=== PATIENT | female | born 1965 | race Caucasian/White ===

== ENCOUNTER 2017-09-26 13:12 | Emergency (ER) | payer SELFPAY ==
[~2017-09-26] VITALS: Ht 162.6 cm; Wt 66.0 kg
[~2017-09-26 13:12] MED LIST: ALPR2TAB3 PO; BUTA1CAP PO; HYDR25TA5 PO; LIAL1.2T PO; LISI-515 PO; TRAM50TA PO
[2017-09-26 13:14] VITALS: BP 122/87; PULSE 107; RESP 20; TEMP 98.4; O2SAT 98
[2017-09-26] MEDS ORDERED: CLON1 PO (13:28)
[2017-09-26] MEDS ORDERED: PENT500C2 PO (13:28)
[2017-09-26] MEDS ORDERED: ASPI-516 CHEW (13:30)
[2017-09-26] MEDS ORDERED: SIMV10TA PO (13:30)
--- NOTE | 2017-09-26 13:44 | PD ---
HPI Chief Complaint: GI Complaint Time Seen by Provider: 13:27 Travel History International Travel<30 days: No Contact w/Intl Traveler<30days: No Traveled to known affect area: No History of Present Illness HPI The patient was seen and examined in the presence of the nurse. This patient complains of a flare of Crohn's. She lost her insurance and doesn't follow up with GI any longer or take any Crohn's medication. She complains of abdominal cramping as well as nausea and vomiting and diarrhea. Denies rectal bleeding or fever. Symptoms severity is moderate. Had this chronically for months to years. No alleviating factors. Symptoms exacerbated by lack of compliance and follow-up. She has no appendix or gallbladder. PFSH Past Medical History Hx Anticoagulant Therapy: No Arthritis: Yes (OSTEO) Asthma: No Autoimmune Disease: No Anxiety: Yes Depression: Yes Heart Rhythm Problems: No Cancer: No Cardiac Catheterization: No Cardiovascular Problems: Yes High Cholesterol: No Chemotherapy: No Chest Pain: No Congestive Heart Failure: No COPD: Yes Cerebrovascular Accident: No Diabetes: No Diminished Hearing: No Endocrine: No Gastrointestinal Disorders: Yes (CROHNS) GERD: Yes (acid reflex) Genitourinary: Yes (KIDNEY INFECTION) Headaches: Yes Hepatitis: Yes (QUESTIONABLE HEP C, CAME BACK NEGATIVE 06/2016) Hiatal Hernia: Yes Hypertension: Yes Immune Disorder: Yes (CROHN'S DISEASE) Implanted Vascular Access Dvce: No Musculoskeletal: Yes (SPINAL STENOSIS, herniating and buldging disks c4-c6) Neurologic: Yes Psychiatric: Yes Reproductive: No Respiratory: Yes (COPD) Immunizations Current: No Migraines: Yes Myocardial Infarction: No Pneumonia: Yes Seizures: No Ulcer: Yes Tetanus Vaccination: > 5 Years PNEUMOCCOCAL Vaccine (Year): 2 ?: Not Menopausal: Yes : 4 Para: 2 Miscarriage: 1 : 1 Ovarian Cysts: Yes (BILATERAL CYSTS REMOVED 12/12/14) Tubal Ligation: Yes Past Surgical History Abdominal Surgery: Yes (APPY, GLADYS) Appendectomy: Yes Cholecystectomy: Yes Coronary Artery Bypass Graft: No Gynecologic Surgery: Yes (ENDOMETRIAL ABLATION, TUBAL) Hysterectomy: No Oral Surgery: Yes (TONSILRCTOMY) Tonsillectomy: Yes Other Surgery: Yes (BREAST RECONSTRUCTION ,left breast 2 biopsy's, appendectomy , gall bladder, ) Family History Family Myocardial Infarction: Yes (FATHER WITH MS AND CABG) Family Hypercholesterolemia: Yes Social History Alcohol Use: Yes (occas. beer) Tobacco Use: Yes (3-4 cigarettes per day) Substance Use: No Allergies-Medications (Allergen,Severity, Reaction): Coded Allergies: Sulfa (Sulfonamide Antibiotics) (Unverified Allergy, Severe, RASH, ) ciprofloxacin (Unverified Allergy, Severe, HIVES, 09/26/17) diatrizoate meglumine (Unverified Allergy, Severe, PALPITATIONS, 09/26/17) duloxetine (Unverified Allergy, Severe, RASH, 09/26/17) gadobenic acid (Unverified Allergy, Severe, PALPITATIONS, 09/26/17) gadodiamide (Unverified Allergy, Severe, PALPITATIONS, 09/26/17) gadoteridol (Unverified Allergy, Severe, PALPITATIONS, 09/26/17) iodixanol (Unverified Allergy, Severe, PALPITATIONS, 09/26/17) iohexol (Unverified Allergy, Severe, HEART PALPITATIONS, 09/26/17) Reported Meds & Prescriptions Reported Meds & Active Scripts Active Zofran (Ondansetron HCl) 4 Mg Tab 4 Mg PO Q6HR PRN Tylenol-Codeine #3 (Acetaminophen-Codeine) 300-30 mg Tab 1 Tab PO Q6HR PRN Prednisone 20 Mg Tab 40 Mg PO DAILY Take 40 mg (2 tablets) daily for 5 days Reported Aspirin 81 Mg Chew 81 Mg CHEW DAILY Simvastatin 10 Mg Tab 10 Mg PO DAILY Pentasa (Mesalamine) 500 Mg Caper 500 Mg PO QID Klonopin (Clonazepam) 1 Mg Tab 1 Mg PO TID Lisinopril 20 Mg Tab 20 Mg PO DAILY Fioricet (Yonsgkvjps-Txahsrjiiiaml-Tnsnjcnn) 50-300-40 Mg Cap 1 Cap PO Q4H PRN Review of Systems General / Constitutional: No: Fever Eyes: No: Visual changes HENT: No: Headaches Cardiovascular: No: Chest Pain or Discomfort Respiratory: No: Shortness of Breath Gastrointestinal: Positive: Nausea, Vomiting, Diarrhea, Abdominal Pain Genitourinary: No: Dysuria Musculoskeletal: No: Pain Skin: No Rash Neurologic: No: Weakness Psychiatric: No: Depression Endocrine: No: Polydipsia Hematologic/Lymphatic: No: Easy Bruising Physical Exam Narrative GENERAL: Well-nourished, well-developed patient with abdominal pain . SKIN: Focused skin assessment reveals no rash and nodules. Skin is Warm and dry. HEAD: Atraumatic. Normocephalic. EYES: Pupils equal and round. No scleral icterus. No injection or drainage. ENT: No nasal bleeding or discharge. Mucous membranes pink and moist. NECK: Trachea midline. No JVD. CARDIOVASCULAR: Regular rate and rhythm. No murmur appreciated. RESPIRATORY: No accessory muscle use. Clear to auscultation. Breath sounds equal bilaterally. GASTROINTESTINAL: Abdomen soft, mild diffuse tenderness without rebound or guarding, nondistended. Hepatic and splenic margins not palpable. Has some hidradenitis changes in the left groin without fluctuance or active drainage MUSCULOSKELETAL: No obvious deformities. No clubbing. No cyanosis. No edema. NEUROLOGICAL: Awake and alert. No obvious cranial nerve deficits. Motor grossly within normal limits. Normal speech. PSYCHIATRIC: Appropriate mood and affect; insight and judgment normal. Data Data Last Documented VS Vital Signs Date Time Temp Pulse Resp B/P (MAP) Pulse Ox O2 Delivery O2 Flow Rate FiO2 09/26/17 13:14 98.4 107 20 122/87 (99) 98 Orders Orders Complete Blood Count With Diff (09/26/17 13:40) Comprehensive Metabolic Panel (09/26/17 13:40) Lipase (09/26/17 13:40) Iv Access Insert/Monitor (09/26/17 13:40) NPO (09/26/17 13:40) Morphine Inj (Morphine Inj) (09/26/17 13:45) Ondansetron Inj (Zofran Inj) (09/26/17 13:45) Sodium Chloride 0.9% Flush (Ns Flush) (09/26/17 13:45) Sodium Chlor 0.9% 1000 Ml Inj (Ns 1000 M (09/26/17 13:45) Morphine Inj (Morphine Inj) (09/26/17 16:00) Labs Laboratory Tests Test 09/26/17 13:40 White Blood Count 8.3 TH/MM3 Red Blood Count 3.95 MIL/MM3 Hemoglobin 12.8 GM/DL Hematocrit 37.5 % Mean Corpuscular Volume 94.8 FL Mean Corpuscular Hemoglobin 32.5 PG Mean Corpuscular Hemoglobin Concent 34.3 % Red Cell Distribution Width 13.4 % Platelet Count 236 TH/MM3 Mean Platelet Volume 8.6 FL Neutrophils (%) (Auto) 57.2 % Lymphocytes (%) (Auto) 35.2 % Monocytes (%) (Auto) 5.6 % Eosinophils (%) (Auto) 1.2 % Basophils (%) (Auto) 0.8 % Neutrophils # (Auto) 4.7 TH/MM3 Lymphocytes # (Auto) 2.9 TH/MM3 Monocytes # (Auto) 0.5 TH/MM3 Eosinophils # (Auto) 0.1 TH/MM3 Basophils # (Auto) 0.1 TH/MM3 CBC Comment DIFF FINAL Differential Comment Blood Urea Nitrogen 8 MG/DL Creatinine 0.61 MG/DL Random Glucose 84 MG/DL Total Protein 7.3 GM/DL Albumin 3.9 GM/DL Calcium Level 8.8 MG/DL Alkaline Phosphatase 75 U/L Aspartate Amino Transf (AST/SGOT) 13 U/L Alanine Aminotransferase (ALT/SGPT) 17 U/L Total Bilirubin 0.2 MG/DL Sodium Level 138 MEQ/L Potassium Level 4.0 MEQ/L Chloride Level 107 MEQ/L Carbon Dioxide Level 24.5 MEQ/L Anion Gap 7 MEQ/L Estimat Glomerular Filtration Rate 103 ML/MIN Lipase 150 U/L MDM Medical Decision Making Medical Screen Exam Complete: Yes Emergency Medical Condition: Yes Medical Record Reviewed: Yes Differential Diagnosis Crohn's flare, colitis, ileus Narrative Course I have reviewed the patient's electronic medical record. Reviewed her last 2 CAT scans, done in 2015, both normal IV placed CBC is normal metabolic profile is normal LFT's is normal lipase is normal I gave her dose of IV morphine and IV Zofran 1 L normal saline IV bolus Stable for outpatient follow-up. I don't see any indication for emergent CT with normal vitals and normal labs and no appendix and no gallbladder She may be having a mild Crohn's flare Nothing objective here I gave her something for pain and nausea and 5 days of prednisone She will seek GI follow-up Diagnosis Primary Impression: Abdominal pain Qualified Codes: R10.84 - Generalized abdominal pain Additional Impression: Crohn's disease Qualified Codes: K50.90 - Crohn's disease, unspecified, without complications Additional Instructions: The patient was advised to follow up with their physician and return if they worsen. The patient was warned about potential sedation for the medications they will receive on prescription. Med/Other Pt SpecificInfo: Prescription(s) given Scripts Ondansetron (Zofran) 4 Mg Tab 4 MG PO Q6HR Y for NAUSEA OR VOMITING, #14 TAB 0 Refills Prov: Frantz Claire MD 09/26/17 Acetaminophen-Codeine (Tylenol-Codeine #3) 300-30 mg Tab 1 TAB PO Q6HR Y for PAIN, #20 TAB 0 Refills Prov: Frantz Claire MD 09/26/17 Prednisone (Prednisone) 20 Mg Tab 40 MG PO DAILY, #10 TAB 0 Refills Take 40 mg (2 tablets) daily for 5 days Prov: Frantz Claire MD 09/26/17 Disposition: 01 DISCHARGE HOME Condition: Stable Frantz Claire MD Sep 26, 2017 13:44
[2017-09-26] MEDS ORDERED: MORPHINE SULFATE 4 MG/ML INJ IV PUSH ONE ×2 (13:45→16:00)
[2017-09-26] MEDS ORDERED: ONDANSETRON HCL 4 MG/2 ML VIAL IVP ONE (13:45)
[2017-09-26] MEDS ORDERED: SODIUM CHLORIDE 0.9% FLUSH 10 ML FLUSH IV FLUSH PRN (13:45)
[2017-09-26] MEDS ORDERED: SODIUM CHLOR 0.9% 1000 ML INJ 1,000 ML IV ONE (13:45)
[2017-09-26 14:02] LABS: AUTOMATED NEUTROPHIL # 4.7 TH/MM3 (1.8-7.7); BASOPHIL # 0.1 TH/MM3 (0-0.2); BASOPHIL % 0.8 % (0.0-2.0); EOSINOPHIL # 0.1 TH/MM3 (0-0.4); EOSINOPHIL % 1.2 % (0.0-4.0); HEMATOCRIT 37.5 % (35.0-46.0); HEMO FLAGS DIFF FINAL; LYMPH % 35.2 % (9.0-44.0); LYMPHOCYTE # 2.9 TH/MM3 (1.0-4.8); MEAN CELL VOLUME 94.8 FL (80.0-100.0); MEAN CORPUSCULAR HEMOGLOBIN 32.5 PG (27.0-34.0); MEAN CORPUSCULAR HGB CONC 34.3 % (32.0-36.0); MONO % 5.6 % (0.0-8.0); NEUT % 57.2 % (16.0-70.0); PLATELET COUNT 236 TH/MM3 (150-450); RED BLOOD COUNT 3.95 MIL/MM3 (4.00-5.30); RED CELL DISTRIBUTION WIDTH 13.4 % (11.6-17.2); WHITE BLOOD COUNT 8.3 TH/MM3 (4.0-11.0)
[2017-09-26 14:28] LABS: ALKALINE PHOSPHATASE 75 U/L (45-117); ALT (GPT) 17 U/L (10-53); ANION GAP 7 MEQ/L (5-15); AST (GOT) 13 U/L (15-37); BICARBONATE 24.5 MEQ/L (21.0-32.0); BLOOD UREA NITROGEN 8 MG/DL (7-18); CHLORIDE 107 MEQ/L (98-107); GLOMERULAR FILTRATION RATE 103 ML/MIN (>89); SODIUM (NA) 138 MEQ/L (136-145); TOTAL BILIRUBIN ADULT 0.2 MG/DL (0.2-1.0)
[2017-09-26] MEDS ORDERED: TYLETAB34 PO (15:52)
[2017-09-26] MEDS ORDERED: PRED20 PO (15:52)
[2017-09-26] MEDS ORDERED: ZOFR4TAB PO (15:52)
[2017-09-26 16:04] VITALS: BP 111/73
== END 2017-09-26 16:40 | disposition home or self-care (01) ==
LOC: NEPE 13:12
DX: R10.84 Generalized abdominal pain (principal); K50.90 Crohn's disease, unspecified, without complications; I10 Essential (primary) hypertension; Z72.0 Tobacco use; Z87.19 Personal history of other diseases of the digestive system; Z87.39 Personal history of other diseases of the musculoskeletal system and connective tissue; Z86.59 Personal history of other mental and behavioral disorders; Z86.79 Personal history of other diseases of the circulatory system; Z87.09 Personal history of other diseases of the respiratory system; Z87.448 Personal history of other diseases of urinary system; Z86.69 Personal history of other diseases of the nervous system and sense organs
CPT/HCPCS: 80053; 83690; 85025; 96361; 96374; 96375; 96376; 99284; J2270; J2405; J7030

== ENCOUNTER 2018-01-01 14:06 | Emergency (ER) | payer OTHER ==
[~2018-01-01] VITALS: Ht 162.6 cm; Wt 70.0 kg
[~2018-01-01 14:06] MED LIST changes: -ALPR2TAB3 PO; +ASPI-516 CHEW; +CLON1 PO; -HYDR25TA5 PO; -LIAL1.2T PO; +PENT500C2 PO; +PRED20 PO; +SIMV10TA PO; -TRAM50TA PO; +TYLETAB34 PO; +ZOFR4TAB PO
[2018-01-01 14:27] VITALS: BP 146/93; PULSE 117; RESP 16; TEMP 98.9; O2SAT 96
[2018-01-01 16:06] LABS: BILIRUBIN, URINE NEG (NEG); BLOOD, URINE MOD (NEG); GLUCOSE,URINE NEG (NEG); KETONE, URINE NEG (NEG); NITRITE,URINE NEG (NEG); PH, URINE 5.5 (5.0-8.5); URINE LEUKOCYTE ESTERASE NEG (NEG)
[2018-01-01] MEDS ORDERED: LIAL1.2T PO (16:06)
--- NOTE | 2018-01-01 16:08 | PD ---
HPI Chief Complaint: Abdominal Pain Time Seen by Provider: 16:07 Travel History International Travel<30 days: No Contact w/Intl Traveler<30days: No Traveled to known affect area: No History of Present Illness HPI 52-year-old female came to the emergency room with history of right lower quadrant abdominal pain and constipation for past 4-5 days. She has history of Crohn's disease. She appeared to be extremely anxious and crying. She says she cannot do this pain anymore. She called her GI specialist Dr. Ackerman requested to come to the emergency room. Patient says her appetite has decreased and she didn't eat anything today. No history of diarrhea. Vital signs are stable. No history of previous surgeries. She is taking medication for Crohn's disease every day as per her. Pain is nonradiating. No aggravating or relieving symptoms identified. [facility] Past Medical History Narrative Medical List of her past medical, surgical, social and family history is reviewed from the nursing note. Hx Anticoagulant Therapy: No Arthritis: Yes (OSTEO) Asthma: No Autoimmune Disease: No Anxiety: Yes Depression: Yes Heart Rhythm Problems: No Cancer: No Cardiac Catheterization: No Cardiovascular Problems: Yes (htn on meds) High Cholesterol: No Chemotherapy: No Chest Pain: No Congestive Heart Failure: No COPD: Yes Cerebrovascular Accident: No Diabetes: No Diminished Hearing: No Endocrine: No Gastrointestinal Disorders: Yes (CROHNS) GERD: Yes (acid reflex) Genitourinary: Yes (KIDNEY INFECTION) Headaches: Yes Hepatitis: Yes (QUESTIONABLE HEP C, CAME BACK NEGATIVE 06/2016) Hiatal Hernia: Yes Hypertension: Yes Immune Disorder: Yes (CROHN'S DISEASE) Implanted Vascular Access Dvce: No Musculoskeletal: Yes (SPINAL STENOSIS, herniating and buldging disks c4-c6) Neurologic: Yes Psychiatric: Yes Reproductive: No Respiratory: Yes (COPD) Immunizations Current: No Migraines: Yes Myocardial Infarction: No Pneumonia: Yes Seizures: No Ulcer: Yes PNEUMOCCOCAL Vaccine (Year): 2 ?: Not Menopausal: Yes : 4 Para: 2 Miscarriage: 1 : 1 Ovarian Cysts: Yes (BILATERAL CYSTS REMOVED 12/12/14) Tubal Ligation: Yes Past Surgical History Abdominal Surgery: Yes (APPY, GLADYS) Appendectomy: Yes Cholecystectomy: Yes Coronary Artery Bypass Graft: No Gynecologic Surgery: Yes (ENDOMETRIAL ABLATION, TUBAL) Hysterectomy: No Oral Surgery: Yes (TONSILRCTOMY) Tonsillectomy: Yes Other Surgery: Yes (BREAST RECONSTRUCTION ,left breast 2 biopsy's, appendectomy , gall bladder, ) Family History Family Hypercholesterolemia: Yes Social History Alcohol Use: Yes (occas. beer) Tobacco Use: Yes (3-4 cigarettes per day) Substance Use: No Allergies-Medications (Allergen,Severity, Reaction): Coded Allergies: Sulfa (Sulfonamide Antibiotics) (Unverified Allergy, Severe, RASH, 01/01/18 ) ciprofloxacin (Unverified Allergy, Severe, HIVES, 01/01/18) diatrizoate meglumine (Unverified Allergy, Severe, PALPITATIONS, 01/01/18) duloxetine (Unverified Allergy, Severe, RASH, 01/01/18) gadobenic acid (Unverified Allergy, Severe, PALPITATIONS, 01/01/18) gadodiamide (Unverified Allergy, Severe, PALPITATIONS, 01/01/18) gadoteridol (Unverified Allergy, Severe, PALPITATIONS, 01/01/18) piperacillin (Verified Allergy, Intermediate, hives, 01/01/18) tazobactam (Verified Allergy, Intermediate, hives, 01/01/18) Comments List of her allergies reviewed from the nursing note. Reported Meds & Prescriptions Reported Meds & Active Scripts Active Ketorolac (Ketorolac Tromethamine) 10 Mg Tab 10 Mg PO TID Zofran (Ondansetron HCl) 4 Mg Tab 4 Mg PO Q6HR PRN Reported Allopurinol 100 Mg Tab 100 Mg PO DAILY Topamax (Topiramate) 25 Mg Tab 25 Mg PO DAILY Protonix (Pantoprazole Sodium) 40 Mg Tab 40 Mg PO DAILY Alprazolam 0.5 Mg Tab 0.5 Mg PO Q8H PRN Lialda (Mesalamine) 1.2 Gm Tabdr 4.8 Gm PO TID Take with a meal. Aspirin 81 Mg Chew 81 Mg CHEW DAILY Simvastatin 10 Mg Tab 10 Mg PO DAILY Klonopin (Clonazepam) 1 Mg Tab 1 Mg PO TID Lisinopril 20 Mg Tab 20 Mg PO DAILY Fioricet (Etbfbbdkwb-Ndtqzvudoxyvx-Kjenxtgm) 50-300-40 Mg Cap 1 Cap PO Q4H PRN Narrative Medication List of her home medications reviewed from the nursing note. Review of Systems Except as stated in HPI: all other systems reviewed are Neg Gastrointestinal: Positive: Abdominal Pain, Constipation Physical Exam Narrative GENERAL: Awake, alert, anxious, tearful, moderate distress SKIN: Focused skin assessment warm/dry. HEAD: Atraumatic. Normocephalic. EYES: Pupils equal and round. No scleral icterus. No injection or drainage. ENT: No nasal bleeding or discharge. Mucous membranes pink and moist. NECK: Trachea midline. No JVD. CARDIOVASCULAR: Regular rate and rhythm. No murmur appreciated. RESPIRATORY: No accessory muscle use. Clear to auscultation. Breath sounds equal bilaterally. GASTROINTESTINAL: Abdomen soft, right lower quadrant tenderness, nondistended. Hepatic and splenic margins not palpable. MUSCULOSKELETAL: No obvious deformities. No clubbing. No cyanosis. No edema. NEUROLOGICAL: Awake and alert. No obvious cranial nerve deficits. Motor grossly within normal limits. Normal speech. PSYCHIATRIC: Appropriate mood and affect; insight and judgment normal. Data Data Last Documented VS Vital Signs Date Time Temp Pulse Resp B/P (MAP) Pulse Ox O2 Delivery O2 Flow Rate FiO2 01/01/18 18:40 86 18 131/87 (102) 98 01/01/18 16:54 Room Air 01/01/18 14:27 98.9 Orders Orders Urinalysis - C+S If Indicated (01/01/18 15:39) Complete Blood Count With Diff (01/01/18 16:14) Comprehensive Metabolic Panel (01/01/18 16:14) Lipase (01/01/18 16:14) Prothrombin Time / Inr (Pt) (01/01/18 16:14) Ct Abd/Pel W/O Iv Contrast (01/01/18 16:14) Iv Access Insert/Monitor (01/01/18 16:14) Ecg Monitoring (01/01/18 16:14) Oximetry (01/01/18 16:14) Ondansetron Inj (Zofran Inj) (01/01/18 16:15) Sodium Chlor 0.9% 1000 Ml Inj (Ns 1000 M (01/01/18 16:14) Sodium Chloride 0.9% Flush (Ns Flush) (01/01/18 16:15) Ketorolac Inj (Toradol Inj) (01/01/18 16:15) Oral Contrast - Adult (01/01/18 16:36) Diatrizoate Jenniferq (Md Salvador Jimenez) (01/01/18 16:58) Ed Discharge Order (01/01/18 18:24) Labs Laboratory Tests Test 01/01/18 15:45 01/01/18 16:30 Urine Collection Type CLEAN CATCH Urine Color STRAW Urine Turbidity CLEAR Urine pH 5.5 Urine Specific [place] 1.011 Urine Protein NEG mg/dL Urine Glucose (UA) NEG mg/dL Urine Ketones NEG mg/dL Urine Occult Blood MOD Urine Nitrite NEG Urine Bilirubin NEG Urine Leukocyte Esterase NEG Urine RBC 0-3 /hpf Urine Squamous Epithelial Cells 0-5 /hpf Urine Amorphous Sediment FEW Microscopic Urinalysis Comment CULT NOT INDICATED Urine Collection Time 1545 White Blood Count 9.8 TH/MM3 Red Blood Count 4.02 MIL/MM3 Hemoglobin 12.8 GM/DL Hematocrit 37.8 % Mean Corpuscular Volume 94.2 FL Mean Corpuscular Hemoglobin 31.8 PG Mean Corpuscular Hemoglobin Concent 33.7 % Red Cell Distribution Width 14.6 % Platelet Count 278 TH/MM3 Mean Platelet Volume 7.7 FL Neutrophils (%) (Auto) 70.8 % Lymphocytes (%) (Auto) 23.6 % Monocytes (%) (Auto) 3.9 % Eosinophils (%) (Auto) 1.0 % Basophils (%) (Auto) 0.7 % Neutrophils # (Auto) 6.9 TH/MM3 Lymphocytes # (Auto) 2.3 TH/MM3 Monocytes # (Auto) 0.4 TH/MM3 Eosinophils # (Auto) 0.1 TH/MM3 Basophils # (Auto) 0.1 TH/MM3 CBC Comment AUTO DIFF Differential Comment AUTO DIFF CONFIRMED Prothrombin Time 9.7 SEC Prothromb Time International Ratio 1.0 RATIO Blood Urea Nitrogen 7 MG/DL Creatinine 0.57 MG/DL Random Glucose 99 MG/DL Total Protein 7.4 GM/DL Albumin 3.5 GM/DL Calcium Level 9.2 MG/DL Alkaline Phosphatase 62 U/L Aspartate Amino Transf (AST/SGOT) 14 U/L Alanine Aminotransferase (ALT/SGPT) 16 U/L Total Bilirubin 0.2 MG/DL Sodium Level 140 MEQ/L Potassium Level 4.1 MEQ/L Chloride Level 109 MEQ/L Carbon Dioxide Level 25.6 MEQ/L Anion Gap 5 MEQ/L Estimat Glomerular Filtration Rate 112 ML/MIN Lipase 154 U/L MDM Medical Decision Making Medical Screen Exam Complete: Yes Emergency Medical Condition: Yes Medical Record Reviewed: Yes Differential Diagnosis Acute appendicitis, flareup of Crohn's disease, constipation Narrative Course 4:50 PM awaiting for the blood test results and CAT scan to be done and resulted. UA is negative. Patient was medicated for pain and nausea. 5:05 PM all the blood test results of back and within normal range. I was told by the nurse that the Toradol that was ordered by me for her for pain relief the patient has refused to take it. She says that apparently Toradol has never worked for her. At this point awaiting for the CAT scan to be done and resulted. If that is within normal limit patient will be discharged home. 6:[address] scan report is back and is within normal limit. Patient will be discharged home. Procedures EKG Prior to Arrival: No Diagnosis Primary Impression: acute on chronic abdominal pain Additional Impression: Abdominal pain Qualified Codes: R10.31 - Right lower quadrant pain Referrals: Primary Care Physician 2 days Additional Instructions: Please follow-up with her primary care. Med/Other Pt SpecificInfo: Prescription(s) given, Existing Med Changed ( stop taking ibuprofen or aspirin while you're on the prescribed medication from the emergency room.) Scripts Ketorolac (Ketorolac) 10 Mg Tab 10 MG PO TID for Pain Management, #15 TAB 0 Refills Prov: Rex Calero MD 01/01/18 Disposition: 01 DISCHARGE HOME Condition: Stable Rex Calero MD Jan 01, 2018 16:08
[2018-01-01] MEDS ORDERED: ALPR0.5T3 PO (16:09)
[2018-01-01] MEDS ORDERED: TOPI25 PO (16:09)
[2018-01-01] MEDS ORDERED: PROT40TA PO (16:09)
[2018-01-01] MEDS ORDERED: ALLO100T PO (16:10)
[2018-01-01 16:14] LABS: URINE COLOR STRAW (YELLW/STRAW)
[2018-01-01] MEDS ORDERED: SODIUM CHLOR 0.9% 1000 ML INJ 1,000 ML IV SCH (16:14)
[2018-01-01 16:15] LABS: AMORPHOUS SEDIMENT, URINE FEW; RBC, URINE 0-3 /hpf (0-3); SQUAMOUS EPITHELIAL CELL URINE 0-5 /hpf (0-5)
[2018-01-01] MEDS ORDERED: ONDANSETRON HCL 4 MG/2 ML VIAL IVP ONE (16:15)
[2018-01-01] MEDS: KETOROLAC TROMETHAMINE 30 MG/ML (IVP) VIAL IVP ONE ×2 (16:15→16:49)
[2018-01-01] MEDS ORDERED: SODIUM CHLORIDE 0.9% FLUSH 10 ML FLUSH IV FLUSH PRN (16:15)
[2018-01-01 16:43] LABS: AUTOMATED NEUTROPHIL # 6.9 TH/MM3 (1.8-7.7); BASOPHIL # 0.1 TH/MM3 (0-0.2); BASOPHIL % 0.7 % (0.0-2.0); EOSINOPHIL # 0.1 TH/MM3 (0-0.4); HEMATOCRIT 37.8 % (35.0-46.0); HEMOGLOBIN 12.8 GM/DL (11.6-15.3); LYMPH % 23.6 % (9.0-44.0); LYMPHOCYTE # 2.3 TH/MM3 (1.0-4.8); MEAN CELL VOLUME 94.2 FL (80.0-100.0); MEAN CORPUSCULAR HEMOGLOBIN 31.8 PG (27.0-34.0); MEAN CORPUSCULAR HGB CONC 33.7 % (32.0-36.0); MEAN PLATELET VOLUME 7.7 FL (7.0-11.0); MONO % 3.9 % (0.0-8.0); MONOCYTE # 0.4 TH/MM3 (0-0.9); NEUT % 70.8 % (16.0-70.0); PLATELET COUNT 278 TH/MM3 (150-450); RED BLOOD COUNT 4.02 MIL/MM3 (4.00-5.30); RED CELL DISTRIBUTION WIDTH 14.6 % (11.6-17.2); WHITE BLOOD COUNT 9.8 TH/MM3 (4.0-11.0)
[2018-01-01 16:54] VITALS: RESP 17; O2SAT 97
[2018-01-01 16:54] LABS: CHLORIDE 109 MEQ/L (98-107); SODIUM (NA) 140 MEQ/L (136-145)
[2018-01-01 16:57] LABS: CALCIUM 9.2 MG/DL (8.5-10.1)
[2018-01-01 16:58] LABS: ALBUMIN 3.5 GM/DL (3.4-5.0); BICARBONATE 25.6 MEQ/L (21.0-32.0); BLOOD UREA NITROGEN 7 MG/DL (7-18); GLUCOSE,RANDOM 99 MG/DL (74-106); PROTHROMBIN TIME - PATIENT 9.7 SEC (9.8-11.6)
[2018-01-01] MEDS ORDERED: DIATRIZOATE MEGLUM/DIATRIZOATE SOD 9 ML CUP ONE (16:58)
[2018-01-01 17:01] LABS: ALT (GPT) 16 U/L (10-53); AST (GOT) 14 U/L (15-37); CREATININE 0.57 MG/DL (0.50-1.00); GLOMERULAR FILTRATION RATE 112 ML/MIN (>89)
[2018-01-01 17:02] LABS: TOTAL BILIRUBIN ADULT 0.2 MG/DL (0.2-1.0); TOTAL PROTEIN 7.4 GM/DL (6.4-8.2)
[2018-01-01 17:03] LABS: ALKALINE PHOSPHATASE 62 U/L (45-117)
--- NOTE | 2018-01-01 18:20 | RADRPT ---
EXAM DATE/TIME: 01/01/2018 17:56 [facility] COMPARISON: CT ABDOMEN & PELVIS W/O CONTRAST, September 30, 2016, 1:01. INDICATIONS : Right sided abdominal pain and constipation for one week. ORAL CONTRAST: Partial prescribed oral contrast ingested. RADIATION DOSE: 10.53 CTDIvol (mGy) MEDICAL HISTORY : Hypertension. Crohns disease. SURGICAL HISTORY : Cholecystectomy. Appendectomy.Tubal ligation. ENCOUNTER: Initial ACUITY: 1 week PAIN SCALE: 5/10 LOCATION: Right abdomen TECHNIQUE: Volumetric scanning of the abdomen and pelvis was performed. Using automated exposure control and ad justment of the mA and/or kV according to patient size, radiation dose was kept as low as reasonably achievable to obtain optimal diagnostic quality images. DICOM format image data is available electro nically for review and comparison. FINDINGS: LOWER LUNGS: The visualized lower lungs are clear. LIVER: Homogeneous density without lesion. There is no dilation of the biliary tree. Cholecystectomy clips are present. SPLEEN: Normal size without lesion. PANCREAS: Within normal limits. KIDNEYS: Normal in size and shape. There is no mass, stone, or hydronephrosis. ADRENAL GLANDS: Within normal limits. VASCULAR: There is no aortic aneurysm. There is mild atherosclerotic disease. BOWEL/MESENTERY: The stomach, small bowel, and colon demonstrate no acute abnormality. There is no free intraperitone al air or fluid. Staple line is present at the base of the cecum related to prior appendectomy. There is an average amount of stool throughout the colon and rectum. ABDOMINAL WALL: Within normal limits. RETROPERITONEUM: There is no lymphadenopathy. BLADDER: No wall thickening or mass. REPRODUCTIVE: Within normal limits. INGUINAL: There is no lymphadenopathy or hernia. MUSCULOSKELETAL: Within normal limits for patient age. There are mild degenerative changes of the lumbar spine. CONCLUSION: No acute finding is identified within the abdomen or pelvis. Rodney Ambrosio MD on January 01, 2018 at 18:15 Board Certified Radiologist. This report was verified electronically.
[2018-01-01] MEDS ORDERED: KETO10 PO (18:28)
[2018-01-01 18:40] VITALS: BP 131/87
== END 2018-01-01 18:46 | disposition home or self-care (01) ==
LOC: PHED 14:06
DX: R10.31 Right lower quadrant pain (principal); G89.29 Other chronic pain; K50.90 Crohn's disease, unspecified, without complications; I10 Essential (primary) hypertension; K21.9 Gastro-esophageal reflux disease without esophagitis; Z72.0 Tobacco use
CPT/HCPCS: 74176; 80053; 81001; 83690; 85025; 85610; 96361; 96374; 99284; J2405; J7030; Q9963; J1885